=== PATIENT | male | born 1985 | race Caucasian/White ===

== ENCOUNTER 2017-07-11 01:06 | Emergency (ER) | payer MEDICAID ==
[~2017-07-11] VITALS: Ht 180.3 cm; Wt 72.6 kg
[2017-07-11 01:10] VITALS: BP 127/74
--- NOTE | 2017-07-11 01:29 | Emergency Room Report ---
History of Present Illness General Chief Complaint: Medical Clearance Source: Patient Present Illness HPI Is a 31-year-old male who was arrested. While in [facility] until he told the personnel training officer that he has mental problem. They sent him here to be evaluated.. Patient denies any problem. Denies any suicidal thought homicidal thought. Not on any medication. Allergies: Coded Allergies: No Known Allergies (Unverified , 07/11/17) Patient History Past Medical History: see triage record, old chart reviewed Past Surgical History: other Pertinent Family History: none Immunizations: other Reviewed Nursing Documentation: PMH: Agreed, PSxH: Agreed Nursing Documentation-PM Past Medical History: No Stated History Review of Systems Eye: Denies: eye pain, blurred vision ENT: Denies: ear pain, nose congestion, throat swelling Respiratory: Denies: cough, shortness of breath Cardiovascular: Denies: chest pain, palpitations Gastrointestinal: Denies: abdominal pain, diarrhea, nausea, vomiting Musculoskeletal: Denies: back pain, joint pain Skin: Denies: rash Neurological: Denies: headache, numbness Endocrine: Denies: increased thirst, increased urine Hematologic/Lymphatic: Denies: easy bruising All Other Systems: negative except mentioned in HPI Physical Exam Vital Signs Date Time Temp Pulse Resp B/P (MAP) Pulse Ox O2 Delivery O2 Flow Rate FiO2 07/11/17 01:08 97.2 100 16 127/74 99 Room Air vitals normal Sp02 EP Interpretation: reviewed, normal General Appearance: well appearing, no apparent distress, alert Head: normocephalic, atraumatic Eyes: bilateral eye PERRL, bilateral eye EOMI ENT: hearing grossly normal, normal pharynx Neck: full range of motion, supple, no meningismus Respiratory: chest non-tender, lungs clear, normal breath sounds Cardiovascular #1: regular rate, rhythm, no murmur Gastrointestinal: normal bowel sounds, non tender, no mass, no organomegaly, no bruit, non-distended Musculoskeletal: back normal, gait/station normal, normal range of motion Psychiatric: mood/affect normal Skin: warm/dry Medical Decision Making Diagnostic Impression: Primary Impression: Encounter for medical screening examination ER Course She presents with with reported psychiatric issue. He denies any symptoms here. No cords are for 5150. He is calm and cooperative. We'll discharge back to officer. Last Vital Signs Date Time Temp Pulse Resp B/P (MAP) Pulse Ox O2 Delivery O2 Flow Rate FiO2 07/11/17 01:10 97.2 100 16 127/74 99 Room Air Status: unchanged Disposition: D/C TO [facility] IN [facility] Condition: Stable Additional Instructions: Followup with your doctor as needed. Return if worse. JEAN SIMMONS M.D. Jul 11, 2017 01:29
[2017-07-11 01:35] VITALS: BP 127/74
== END 2017-07-11 01:35 ==
LOC: EMR 01:30
DX: Z02.89 Encounter for other administrative examinations (principal)
CPT/HCPCS: 99283